=== PATIENT | male | born 1960 | race Caucasian/White ===

== ENCOUNTER 2017-01-17 04:45 | Emergency (ER) | payer OTHER ==
[~2017-01-17] VITALS: Ht 167.6 cm; Wt 152.5 kg
[2017-01-17 04:48] VITALS: Ht 167.6 cm; Wt 152.5 kg
[2017-01-17] MEDS ORDERED: ONDANSETRON 4 MG INJ IV STA (05:13)
--- NOTE | 2017-01-17 05:26 | ERD ---
ER Documentation Chief Complaint Chief Complaint back pain x 1 day, sob, denies injury (PIEDAD YOST) HPI This is a 56-year-old male with a past medical history of hypertension hyperlipidemia and obesity that presents to the ER with shortness of breath, dizziness and left-sided flank pain. His symptoms started 1-1/2 hours ago. Patient denies any chest pain. Shortness of breath is nonexertional. Dizziness is described as a falling sensation. He also complains of associated nausea however has not had any vomiting or diarrhea. Patient has not had any cough or cold symptoms. He denies a history of COPD, or asthma. Patient has not had any fevers or chills. Patient denies any urinary frequency, dysuria or hematuria. Has any back trauma. He denies any urinary bowel incontinence. (PIEDAD YOST) ROS 12 point review of systems was done, all negative except per HPI. (PIEDAD YOST) Medications Home Meds Active Scripts Ondansetron (Ondansetron Odt) 4 Mg Tab.rapdis, 4 MG PO Q6H Y for NAUSEA AND/OR VOMITING, #10 TAB Prov:OVIDIO BOND PA-C 01/17/17 Ibuprofen* (Motrin*) 600 Mg Tab, 600 MG PO Q6, #30 TAB Prov:OVIDIO BOND PA-C 01/17/17 Hydrocodone/Acetaminophen ([place] 5-325 Tablet) 1 Each Tablet, 1 TAB PO Q6H Y for PAIN, #10 TAB Prov:OVIDIO BOND PA-C 01/17/17 Allergies Allergies: Coded Allergies: No Known Allergy (Unverified , 01/17/17) PMhx/Soc Medical and Surgical Hx: pt denies Surgical Hx History of Surgery: No Anesthesia Reaction: No Hx Neurological Disorder: No Hx Respiratory Disorders: No Hx Cardiac Disorders: Yes (HTN) Hx Psychiatric Problems: No Hx Miscellaneous Medical Probl: No Hx Alcohol Use: No Hx Substance Use: No Hx Tobacco Use: No Smoking Status: Never smoker (PIEDAD YOST) Physical Exam Vitals Vital Signs Date Time Temp Pulse Resp B/P Pulse Ox O2 Delivery O2 Flow Rate FiO2 01/17/17 07:52 98.4 90 16 119/83 95 Room Air 01/17/17 06:11 98.2 70 20 141/99 100 Room Air 01/17/17 06:11 Nasal Cannula 2 01/17/17 04:48 97.8 66 20 164/90 99 (OVIDIO BOND PA-C) Physical Exam GENERAL: The patient is well developed and appropriate for usual state of health , in no apparent distress. HEENT: Atraumatic. Conjunctivae are pink. Pupils equal, round, and reactive to light. Extraocular muscles are grossly intact. Bilateral tympanic membranes are clear with no evidence of erythema, effusion or dulling of the light reflex. The oropharynx is clear with no erythema or exudates. CHEST: Clear to auscultation bilaterally. There are no rales, wheezes or rhonchi. HEART: Regular rate and rhythm. No murmurs, clicks, rubs or gallops. ABDOMEN: Soft, nontender and nondistended. Good bowel sounds. No rebound or guarding. No gross peritonitis. No gross organomegaly or masses. No White sign or McBurney point tenderness. BACK: Sided flank pain, no CVA tenderness. There is no thoracic or lumbar spine tenderness. No step-offs. EXTREMITIES: Equal pulses bilaterally. There is no peripheral clubbing, cyanosis or edema. No focal swelling or erythema. Full range of motion. Grossly neurovascularly intact. NEURO: Alert and oriented. Cranial nerves II through XII are intact. Motor strength in all 4 extremities with 5/5 strength. Sensation grossly intact. Normal speech and gait. SKIN: There is no apparent rash or petechia. The skin is warm and dry. (PIEDAD YOST) Result Diagram: 01/17/17 0540 01/17/17 0540 Results 24 hrs Laboratory Tests Test 01/17/17 05:40 01/17/17 07:02 White Blood Count 6.910^3/ul Red Blood Count 5.2510^6/ul Hemoglobin 14.3g/dl Hematocrit 42.9% Mean Corpuscular Volume 81.7fl Mean Corpuscular Hemoglobin 27.2pg Mean Corpuscular Hemoglobin Concent 33.3g/dl Red Cell Distribution Width 12.1% Platelet Count 26899^3/UL Mean Platelet Volume 9.9fl Neutrophils % 54.1% Lymphocytes % 34.7% Monocytes % 8.2% Eosinophils % 1.7% Basophils % 1.0% Nucleated Red Blood Cells % 0.0/100WBC Neutrophils # 3.710^3/ul Lymphocytes # 2.410^3/ul Monocytes # 0.610^3/ul Eosinophils # 0.110^3/ul Basophils # 0.110^3/ul Nucleated Red Blood Cells # 0.010^3/ul Prothrombin Time 12.5Sec Prothrombin Time Ratio 1.0 INR International Normalized Ratio 0.93 Activated Partial Thromboplast Time 28.1Sec D-Dimer 525.30ng/ml D-Dimer Comment Sodium Level 143mmol/L Potassium Level 3.5mmol/L Chloride Level 107mmol/L Carbon Dioxide Level 23mmol/L Anion Gap 17 Blood Urea Nitrogen 12mg/dl Creatinine 1.14mg/dl Glucose Level 133mg/dl Calcium Level 10.0mg/dl Total Bilirubin 0.2mg/dl Direct Bilirubin 0.00mg/dl Indirect Bilirubin 0.2mg/dl Aspartate Amino Transf (AST/SGOT) 17IU/L Alanine Aminotransferase (ALT/SGPT) 30IU/L Alkaline Phosphatase 72IU/L Troponin I < 0.012ng/ml B-Type Natriuretic Peptide 36PG/ML Total Protein 7.5g/dl Albumin 4.5g/dl Globulin 3.00g/dl Albumin/Globulin Ratio 1.50 Urine Color YELLOW Urine Clarity CLEAR Urine pH 5.0 Urine Specific [place] 1.012 Urine Ketones NEGATIVEmg/dL Urine Nitrite NEGATIVEmg/dL Urine Bilirubin NEGATIVEmg/dL Urine Urobilinogen NEGATIVEmg/dL Urine Leukocyte Esterase NEGATIVELeu/ul Urine Microscopic RBC 16/HPF Urine Microscopic WBC 1/HPF Urine Mucus FEW/HPF Urine Hemoglobin 3+mg/dL Urine Glucose NEGATIVEmg/dL Urine Total Protein NEGATIVEmg/dl Current Medications Medications (Trade) Dose Ordered Sig/Maria Elena Route PRN Reason Start Time Stop Time Status Last Admin Dose Admin Morphine Sulfate (morphine) 6 mg ONCE ONCE IV 01/17/17 05:30 01/17/17 05:31 DC 01/17/17 05:32 Ondansetron HCl (Zofran Inj) 4 mg ONCE STAT IV 01/17/17 05:13 01/17/17 05:15 DC 01/17/17 05:31 Hydromorphone HCl 0.5 mg 0.5 mg ONCE STAT IV 01/17/17 06:12 01/17/17 06:13 DC 01/17/17 06:18 Sodium Chloride (NS) 1,000 ml @ 1,000 mls/hr Q1H STAT IV 01/17/17 06:19 01/17/17 07:18 DC 01/17/17 06:27 Ketorolac Tromethamine (Toradol) 30 mg ONCE STAT IV 01/17/17 07:43 01/17/17 07:44 DC 01/17/17 07:50 12-lead EKG(interpreted by supervising physician): Dr. Andre Rate/Rhythm: Normal Sinus Rhythm, rate of 63 QRS, ST, T-waves: No changes consistent w/ acute ischemia, no intervals, no dysrhythmias, no ectopy Impression: No evidence of ischemia or arrhythmia DIAGNOSTIC IMAGING REPORT Patient: ANDRZEJ RANDLE : 1960 Age: 56 Sex: M MR #: [id number] DOS: 01/17/17512 Ordering MD: PIEDAD YOST. ME-C Location: [facility] Room/Bed: PROCEDURE: CHEST CLINICAL INDICATION: 56-year-old male with shortness of breath. TECHNIQUE: AP upright view of the chest was obtained portably on two radiographs. The images were reviewed on a PACS workstation. COMPARISON: None. FINDINGS: There is a shallow inspiration accentuating the heart size. Accounting for this , the cardiomediastinal silhouette is prominent but within normal limits. There is mild bibasilar subsegmental atelectasis. There is no evidence for an infiltrate. There is no evidence for congestive heart failure. There is no evidence for pneumothorax. The osseous structures are intact. IMPRESSION: Shallow inspiration with mild bibasilar subsegmental atelectasis. .Josué Rodriguez MD, Date Time Electronically viewed and signed by .Josué Rodriguez MD, on 01/17/2017 06:58 .M/ CC: PIEDAD YOST DIAGNOSTIC IMAGING REPORT Patient: ANDRZEJ RANDLE : 1960 Age: 56 Sex: M MR #: [id number] DOS: 01/17/17 0000 Ordering MD: PIEDAD YOST PA-C Location: [facility] Room/Bed: PROCEDURE: CT of the abdomen and pelvis without contrast CLINICAL INDICATION: Left flank pain TECHNIQUE: Spiral CT images through the abdomen and pelvis without the use of contrast. The administered radiation dose is CTDI 23.76 mGy and DLP 1548.53 mGy*cm. Coronal and sagittal reformatted images were submitted. One or more of the following dose reduction techniques were used: automated exposure control, adjustment of the mA and/or kV according to patient size, or use of iterative reconstruction technique. DICOM images are available. COMPARISON: None FINDINGS: Lack of oral and intravenous contrast and motion limits evaluation. The lung bases are clear. No pleural effusion is seen. The liver, spleen, adrenal glands and pancreas are unremarkable. There is no evidence of cholelithiasis or biliary ductal dilatation. The right kidney is normal. The kidneys appears enlarged with mild perinephric fluid and moderate dilatation of the extrarenal pelvis. Trace fluid is seen along the left ureter. A 2 mm ureteral calculus is identified just proximal to the UVJ.. The aorta is normal in caliber. There is no evidence for bowel obstruction, free air, or abscess. The appendix is normal in appearance. the colon is fecal filled. No adenopathy or ascites is seen. The bladder is partially distended. The prostate gland is mildly enlarged. There are small fat containing inguinal hernias. L5-S1 degenerative disc disease and severe left neural foraminal narrowing.. IMPRESSION: 2 mm ureteral calculus cyst proximal to the left UVJ and moderate hydronephrosis. RPTAT: HCNS Physician Yessi Date Time Electronically viewed and signed by Physician Yessi on 01/17/2017 07: 41 CS/ (OVIDIO BOND PA-C) Procedures/MDM Medical decision m[age]-year-old male comes emergency department with left- sided flank pain causing pain from his flank going to his groin that is sharp and sudden onset beginning this morning. The patient presents with a 2 mm left ureteral stone at the UVJ causing moderate hydronephrosis. This patient's care was signed out to me by Piedad Yost PA-C. His pain was controlled in the emergency department with morphine, Dilaudid and Toradol he was also given normal saline intravenously. She is resting comfortably, his pain was well controlled and he can be discharged home at this time. He has not had any fevers or chills, no leukocytosis, no renal injury, and urine is negative for infection. D-dimer was discussed with my attending physician, Dr. Arvizu. The d -dimer was mildly elevated at 525 but the age-adjusted d-dimer is actually 580 so it is not technically elevated in this patient. His presentation is most consistent with a kidney stone, suspicion for pulmonary embolus, dissection, acute coronary syndrome is low. All copies of workup with CT as well as chest x -ray were provided to the patient. Patient's blood pressure was elevated (>120/80) but appears stable without evidence of hypertension emergency or urgency. The patient was counseled about the risks of hypertension and urged to pursue outpatient monitoring and therapy within a week with their primary care physician. (OVIDIO BOND PA-C) Departure Diagnosis: Primary Impression: Ureteral stone with hydronephrosis Additional Impressions: Degenerative disc disease at L5-S1 level Hypertension Condition: Good PIEDAD YOST Jan 17, 2017 05:26 OVIDIO BOND PA-C Jan 17, 2017 08:07
[2017-01-17] MEDS ORDERED: morphine 10 MG INJ IV ONE (05:30)
[2017-01-17 05:47] LABS: BASOPHIL # 0.1 10^3/ul (0.0-0.1); EOSINOPHILS # 0.1 10^3/ul (0.0-0.5); EOSINOPHILS % 1.7 % (0.0-7.0); HEMATOCRIT 42.9 % (42.0-52.0); HEMOGLOBIN 14.3 g/dl (14.0-18.0); LYMPHOCYTES # 2.4 10^3/ul (0.8-2.9); LYMPHOCYTES % 34.7 % (15.0-51.0); MEAN CORPUSCULAR HEMOGLOBIN 27.2 pg (29.0-33.0); MEAN CORPUSCULAR HGB CONC 33.3 g/dl (32.0-37.0); MEAN CORPUSCULAR VOLUME 81.7 fl (82.0-101.0); MEAN PLATELET VOLUME 9.9 fl (7.4-10.4); MONOCYTE # 0.6 10^3/ul (0.3-0.9); MONOCYTES % 8.2 % (0.0-11.0); NEUTROPHIL # 3.7 10^3/ul (1.6-7.5); NEUTROPHILS % 54.1 % (39.0-77.0); PLATELET COUNT 259 10^3/UL (140-415); RED BLOOD COUNT 5.25 10^6/ul (4.70-6.10); RED CELL DISTRIBUTION WIDTH 12.1 % (11.5-14.5); WHITE BLOOD COUNT 6.9 10^3/ul (4.8-10.8)
[2017-01-17 06:11] LABS: INR 0.93; PROTIME 12.5 Sec (11.9-14.9)
[2017-01-17 06:12] LABS: PARTIAL THROMBOPLASTIN TIME 28.1 Sec (25.0-35.0)
[2017-01-17] MEDS ORDERED: HYDROmorphONE 0.5 MG/0.5 ML SYG IV STA (06:12)
[2017-01-17 06:14] LABS: D-DIMER 525.3 ng/ml (<460)
[2017-01-17 06:18] LABS: ALANINE AMINOTRANSFERASE 30 IU/L (13-69); ALBUMIN 4.5 g/dl (3.3-4.9); ALKALINE PHOSPHATASE 72 IU/L (42-121); ANION GAP 17 (8-16); ASPARTATE AMINO TRANSFERASE 17 IU/L (15-46); BILIRUBIN,INDIRECT 0.2 mg/dl (0-1.1); BILIRUBIN,TOTAL 0.2 mg/dl (0.2-1.3); BLOOD UREA NITROGEN 12 mg/dl (7-20); CARBON DIOXIDE 23 mmol/L (21-31); CHLORIDE 107 mmol/L (97-110); CREATININE 1.14 mg/dl (0.61-1.24); GLUCOSE 133 mg/dl (70-220); POTASSIUM 3.5 mmol/L (3.5-5.1); SODIUM 143 mmol/L (135-144); TOTAL PROTEIN 7.5 g/dl (6.1-8.1)
[2017-01-17] MEDS ORDERED: SOD CHLORIDE 0.9% 1,000 ML IV STA (06:19)
[2017-01-17 06:29] LABS: B-TYPE NATRIURETIC PEPTIDE 36 PG/ML (0-125)
[2017-01-17 06:31] LABS: TROPONIN-I < 0.012 ng/ml (0.00-0.12)
--- NOTE | 2017-01-17 06:58 | RADRPT ---
PROCEDURE: CHEST CLINICAL INDICATION: 56-year-old male with shortness of breath. TECHNIQUE: AP upright view of the chest was obtained portably on two radiographs. The images were reviewed on a PACS workstation. COMPARISON: None. FINDINGS: There is a shallow inspiration accentuating the heart size. Accounting for this, the cardiomediastin al silhouette is prominent but within normal limits. There is mild bibasilar subsegmental atelectasi s. There is no evidence for an infiltrate. There is no evidence for congestive heart failure. Ther e is no evidence for pneumothorax. The osseous structures are intact. IMPRESSION: Shallow inspiration with mild bibasilar subsegmental atelectasis. .Josué Rodriguez MD, MD Date Time Electronically viewed and signed by .Josué Rodriguez MD, on 01/17/2017 06:58 .M/
[2017-01-17 07:23] LABS: ADD UMIC YES; UR ASCORBIC ACID NEGATIVE (NEGATIVE); UR BILIRUBIN (Dip) NEGATIVE (NEGATIVE); UR BLOOD (Dip) 3+ mg/dL (NEGATIVE); UR CLARITY CLEAR (CLEAR); UR COLOR YELLOW (YELLOW); UR GLUCOSE (Dip) NEGATIVE (NEGATIVE); UR KETONES (Dip) NEGATIVE (NEGATIVE); UR LEUKOCYTE ESTERASE (Dip) NEGATIVE Leu/ul (NEGATIVE); UR MUCUS FEW /HPF (NONE SEEN); UR NITRITE (Dip) NEGATIVE (NEGATIVE); UR RBC 16 /HPF (0-5); UR SPECIFIC GRAVITY (Dip) 1.012 (1.003-1.030); UR TOTAL PROTEIN (Dip) NEGATIVE (NEGATIVE); UR UROBILINOGEN (Dip) NEGATIVE (NEGATIVE)
--- NOTE | 2017-01-17 07:41 | RADRPT ---
PROCEDURE: CT of the abdomen and pelvis without contrast CLINICAL INDICATION: Left flank pain TECHNIQUE: Spiral CT images through the abdomen and pelvis without the use of contrast. The admin istered radiation dose is CTDI 23.76 mGy and DLP 1548.53 mGy*cm. Coronal and sagittal reformatted i mages were submitted. One or more of the following dose reduction techniques were used: automated e xposure control, adjustment of the mA and/or kV according to patient size, or use of iterative recon struction technique. DICOM images are available. COMPARISON: None FINDINGS: Lack of oral and intravenous contrast and motion limits evaluation. The lung bases are clear. No pleural effusion is seen. The liver, spleen, adrenal glands and pancreas are unremarkable. There is no evidence of cholelithia sis or biliary ductal dilatation. The right kidney is normal. The kidneys appears enlarged with mild perinephric fluid and moderate dilatation of the extrarenal pelvis. Trace fluid is seen along the left ureter. A 2 mm ureteral calculus is identified just proximal to the UVJ.. The aorta is normal in caliber. There is no evidence for bowel obstruction, free air, or abscess. The appendix is nor mal in appearance. the colon is fecal filled. No adenopathy or ascites is seen. The bladder is part ially distended. The prostate gland is mildly enlarged. There are small fat containing inguinal lucio ias. L5-S1 degenerative disc disease and severe left neural foraminal narrowing.. IMPRESSION: 2 mm ureteral calculus cyst proximal to the left UVJ and moderate hydronephrosis. RPTAT: HCNS Physician Yessi Date Time Electronically viewed and signed by Physician Yessi on 01/17/2017 07:41 FINA/
[2017-01-17] MEDS ORDERED: KETOROLAC 30 MG INJ IV STA (07:43)
[2017-01-17 07:52] VITALS: BP 119/83; PULSE 90; RESP 16; TEMP 98.4
[2017-01-17] MEDS ORDERED: ONDA4TAB14 PO (08:01)
[2017-01-17] MEDS ORDERED: IBUP-1542 PO (08:01)
[2017-01-17] MEDS ORDERED: HYDR-906 PO (08:01)
== END 2017-01-17 08:20 | disposition home or self-care (01) ==
LOC: FTE 04:45
DX: N13.2 Hydronephrosis with renal and ureteral calculous obstruction (principal); M51.37 Other intervertebral disc degeneration, lumbosacral region; I10 Essential (primary) hypertension; E66.9 Obesity, unspecified; Z68.43 Body mass index [BMI] 50.0-59.9, adult
CPT/HCPCS: 36415; 71010; 74176; 80053; 81001; 83880; 84484; 85025; 85378; 85610; 85730; 93005; 96361; 96374; 96375; J1170; J1885; J2270; J2405; J7030; Z7502